=== PATIENT | female | born 2000 | race Two or more races ===

== ENCOUNTER 2021-03-09 22:43 | Emergency (ER) | payer OTHER ==
[~2021-03-09] VITALS: Ht 160 cm; Wt 45.4 kg
[2021-03-09] MEDS ORDERED: CHILDREN'S ASPI81 MG (23:16)
[2021-03-10] MEDS ORDERED: AMOXICILLI250 MG/51 PO (02:54)
== END 2021-03-10 04:08 | disposition home or self-care (01) ==
LOC: ER 22:43 → EMR PED 22:43
DX: N39.0 Urinary tract infection, site not specified (principal); R50.9 Fever, unspecified; Z03.818 Encounter for observation for suspected exposure to other biological agents ruled out

== ENCOUNTER 2021-03-11 11:25 | Emergency (ER) | payer OTHER ==
[~2021-03-11] VITALS: Ht 160 cm; Wt 45.4 kg
[~2021-03-11 11:25] MED LIST: AMOXICILLI250 MG/51 PO; CHILDREN'S ASPI81 MG
== END 2021-03-11 15:22 | disposition home or self-care (01) ==
LOC: EMR PED 11:25
DX: B34.9 Viral infection, unspecified (principal)